=== PATIENT | male | born 1960 | race Caucasian/White ===

== ENCOUNTER 2017-04-17 22:40 | Emergency (ER) | payer BC ==
[~2017-04-17] VITALS: Ht 170.2 cm; Wt 113.4 kg
[2017-04-17] MEDS ORDERED: GLUCOPHAGE500 MG PO (22:51)
[2017-04-17] MEDS ORDERED: LISINOPRIL10 MG PO (22:51)
[2017-04-17] MEDS ORDERED: GLIPIZIDE5 MG PO (22:51)
[2017-04-17] MEDS ORDERED: LANTUS100 UNITS/ SUB-Q (22:52)
[2017-04-17] MEDS ORDERED: ASPIR-LOW81 MG PO (22:52)
== END 2017-04-17 23:16 | disposition home or self-care (01) ==
LOC: ED 22:40
PROC: 09CKXZZ Extirpation of Matter from Nasal Mucosa and Soft Tissue, External Approach (ICD-10-PCS; principal; 2017-04-17)
DX: T17.1XXA Foreign body in nostril, initial encounter (principal); E11.9 Type 2 diabetes mellitus without complications; I10 Essential (primary) hypertension; Z79.82 Long term (current) use of aspirin; Z79.4 Long term (current) use of insulin; Z79.899 Other long term (current) drug therapy
CPT/HCPCS: 30300; 99282